=== PATIENT | female | born 2000 | race Caucasian/White ===

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

== ENCOUNTER 2018-02-24 08:44 | Emergency (ER) | payer OTHER ==
[2018-02-24 09:25] LABS: URINE PH (Dip) POC 5.5 (5.0-8.5)
[2018-02-24 09:25] LABS: URINE BLOOD (Dip) POC 2+ (NEGATIVE); URINE GLUCOSE (Dip) POC Negative (NEGATIVE); URINE KETONES (Dip) POC Trace (NEGATIVE); URINE LEUKOCYTE EST (Dip) POC Negative (NEGATIVE); URINE NITRITE (Dip) POC Negative (NEGATIVE); URINE TOTAL PROTEIN POC 2+ (NEGATIVE)
== END 2018-02-24 09:49 | disposition home or self-care (01) ==
LOC: FTE 08:44
DX: N39.0 Urinary tract infection, site not specified (principal)
CPT/HCPCS: 81003; 81025; 99282

== ENCOUNTER 2018-02-26 19:35 | Emergency (ER) | payer OTHER | END 2018-02-26 23:00 | disposition home or self-care (01) | LOC: FTE 19:35 | DX: N94.89 Other specified conditions associated with female genital organs and menstrual cycle (principal); R40.2412 Glasgow coma scale score 13-15, at arrival to emergency department | CPT/HCPCS: 87210; 87591; 99284 ==

== ENCOUNTER 2018-12-03 19:53 | Emergency (ER) | payer OTHER ==
[2018-12-03] MEDS: PENICILLIN G BENZ 1.2 MIL UNIT SYG IM (20:29)
== END 2018-12-03 20:51 | disposition home or self-care (01) ==
LOC: FTE 19:53
DX: J02.0 Streptococcal pharyngitis (principal)
CPT/HCPCS: 96372; 99284-25